=== PATIENT | female | born 1965 | race African-American/Black ===

== ENCOUNTER 2018-07-05 09:53 | Outpatient (CLI) | payer OTHER ==
[~2018-07-05] VITALS: Ht 149.9 cm; Wt 52.6 kg
[2018-07-05 10:10] VITALS: BP 117/74
--- NOTE | 2018-07-06 08:00 | Consultation ---
DATE OF CONSULTATION: 07/05/2018 CONSULTING PHYSICIAN: Radu Talavera M.D. CHIEF COMPLAINT: Diarrhea and screening colonoscopy. HISTORY OF PRESENT ILLNESS: This is a 52-year-old female with past medical history of COPD, was referred to us for screening colonoscopy. She also complained of some multiple . PAST MEDICAL HISTORY: History of COPD. PAST SURGICAL HISTORY: Arm surgery and . MEDICATIONS: Please see medication reconciliation list. FAMILY HISTORY: Noncontributory. SOCIAL HISTORY: The patient denies any alcohol, but she is a smoker. No IV drug abuse. ALLERGIES: No known drug allergies. REVIEW OF SYSTEMS: A 10-point review of systems was performed and pertinent positives in HPI. PHYSICAL EXAMINATION: VITAL SIGNS: Temperature 97.7, blood pressure 117/74, pulse 60, and respirations 20. HEENT: Normocephalic and atraumatic. Sclerae anicteric. NECK: Supple. No evidence of lymphadenopathy. CARDIOVASCULAR: Regular rate and rhythm. Plus S1 and S2. No obvious murmur. LUNGS: Clear to auscultation bilaterally. ABDOMEN: Positive bowel sounds. Soft and nontender. No rebound. No guarding. No peritoneal sign. EXTREMITIES: No cyanosis, no clubbing, no edema. ASSESSMENT AND PLAN: This is a 52-year-old female with history of COPD, was referred to us for screening colonoscopy, also complaining of chronic watery diarrhea. Plan to schedule colonoscopy when authorization approved, most probably going to do biopsy, also to rule out microscopic colitis if there is no any diarrhea. Radu Talavera M.D. DR: DIANA JOB#: [id number] CC:
[2018-07-07] MEDS ORDERED: LORATADINE10 M1 PO (09:00)
[2018-07-07] MEDS ORDERED: PROAIR HFA8.5 GM INH (09:00)
[2018-07-07] MEDS ORDERED: ADVAIR 250-501 EACH INH (09:00)
[2018-07-07] MEDS ORDERED: VENTOLIN HFA18 GM INH (09:00)
[2018-07-07] MEDS ORDERED: QVAR7.3 GM INH (09:00)
[2018-07-07] MEDS ORDERED: IPRATROPIU0.2 MG/1 M HHN (09:00)
== END 2018-07-05 13:48 | disposition home or self-care (01) ==
LOC: PAN 09:53
DX: R19.7 Diarrhea, unspecified (principal); J44.9 Chronic obstructive pulmonary disease, unspecified; F17.200 Nicotine dependence, unspecified, uncomplicated